=== PATIENT | male | born 1990 | race Caucasian/White ===

== ENCOUNTER 2020-11-14 12:39 | Emergency (ER) | payer SELFPAY ==
[2020-11-14] MEDS ORDERED: HYDROXYZINE HCL 25 MG TABLET ONE (13:09)
== END 2020-11-14 14:10 | disposition home or self-care (01) ==
LOC: EDH 12:39
DX: F41.1 Generalized anxiety disorder (principal); B33.8 Other specified viral diseases; I10 Essential (primary) hypertension
CPT/HCPCS: 71045